=== PATIENT | female | born 1980 | race Caucasian/White ===

== ENCOUNTER 2017-02-07 12:49 | Emergency (ER) | payer MEDICAID ==
[2014-07-14 08:24] VITALS: BMI 51.0
[~2017-02-07 12:49] MED LIST: ADIPEX-P37.5 MG PO; ANTIVERT12.5 MG PO; CYCLOBENZAPRINE10 MG PO; DEMEROL50 MG PO; FLUTICASONE PRO16 GM NASAL; MECLIZINE HCL12.5 MG PO; METOPROLOL TART50 MG PO; ZYRTEC10 MG PO
== END 2017-02-07 14:30 | disposition home or self-care (01) ==
LOC: D.ER 12:49
DX: T63.461A Toxic effect of venom of wasps, accidental (unintentional), initial encounter (principal); Y92.029 Unspecified place in mobile home as the place of occurrence of the external cause; I10 Essential (primary) hypertension

== ENCOUNTER 2017-02-23 09:56 | Day surgery (SDC) | payer MEDICAID ==
[2017-02-23 11:15] LABS: BASOPHILS 0.3 % (0-2); EOSINOPHILS 2.6 % (0-7); HEMATOCRIT 39.4 % (36.0-48.0); HEMOGLOBIN 12.7 g/dL (12-16); IMMATURE GRANULOCYTES 0.4 % (0-5); LYMPHOCYTES 20.8 % (15-50); MCHC 32.2 g/dL (31.0-37.0); MEAN PLATELET VOLUME 10.1 fL (7.4-10.4); MONOCYTES 6.2 % (2-11); NEUTROPHILS 69.7 % (40-80); PLATELET COUNT 272 10x3/uL (130-400); RBC 4.38 10x6/uL (4.00-5.40); RDW 13.6 % (11.5-14.5); WBC 7.8 10x3/uL (4.8-10.8)
[2017-02-23] MEDS ORDERED: PAXIL40 MG PO (11:23)
[2017-02-23] MEDS ORDERED: BACLOFEN20 M1 PO (11:23)
[2017-02-23] MEDS ORDERED: WELLBUTRIN SR150 MG PO (11:24)
[2017-02-23] MEDS ORDERED: AMBIEN5 MG PO (11:24)
[2017-02-23 11:28] VITALS: BP 145/82; BMI 53.3
[2017-02-23 11:32] LABS: ANION GAP 11.4 mmol/L (8-16); CALCIUM 8.6 mg/dL (8.5-10.1); CARBON DIOXIDE 27.5 mmol/L (21.0-32.0); POTASSIUM - SERUM 3.9 mmol/L (3.5-5.1)
--- NOTE | 2017-02-24 09:09 | OP ---
PATIENT NAME: JAMA ADAM MEDICAL RECORD: [id number] :82 LOCATION:[facility] ADMISSION DATE: SURGEON: RODRIGUEZ HERNANDEZ DO DATE OF OPERATION: 02/23/2017 PROCEDURE: Colonoscopy. INDICATIONS FOR PROCEDURE: Right lower quadrant abdominal pain, nausea and vomiting. SCOPE: Olympus video pediatric colonoscope. MEDICATIONS: Propofol 350 mg IV per anesthesia. WITHDRAWAL TIME: 6 minutes. ESTIMATED BLOOD LOSS: None. COMPLICATIONS: None. FINDINGS: Informed consent was given. The patient was made comfortable with the above medication. DESCRIPTION OF PROCEDURE: After reaching an adequate level of sedation by slow IV push, the patient was placed on her left side. A digital rectal examination was performed and revealed some small external hemorrhoids, which were not bleeding. The endoscope was then advanced under direct visualization through the rectum to the terminal ileum. The scope was slowly withdrawn and mucosa was carefully examined. There was evidence of a few mild diverticulosis of the sigmoid colon. There was no evidence of diverticulitis. There were no polyps visualized on today's examination. There were no lesions or other abnormalities visualized involving the mucosa or lumen of the colon. The scope was brought back into the rectum and retroflexed where some small nonbleeding internal hemorrhoids were seen. The endoscope was then withdrawn from the patient. The patient tolerated the procedure well and there were no complications. IMPRESSIONS: 1. Mild diverticulosis of the sigmoid colon. 2. Small internal and external hemorrhoids, which were not bleeding. PLAN AND RECOMMENDATIONS: 1. Discharge home when recovery parameters are met. 2. High fiber diet. 3. Continue current medications. 4. Follow up with primary care physician as there is ongoing workup regarding the right lower quadrant abdominal pain. Based on today's examination, I do not have a cause from a GI standpoint for the right lower abdominal pain. 5. Recall colonoscopy at age 51 for colorectal cancer screening purposes. TRANSINT:[id number] Voice Confirmation ID: [id number] DOCUMENT ID: [id number] OPERATIVE REPORT [id number] JAMA ADAM RODRIGUEZ HERNANDEZ DO at 0909 CC: [id number] DICTATION DATE: 02/23/17 1352 SUBSTANCE ABUSE THERAPIST: 02/23/[address] [facility] 02/23/17 [place] [id number]
== END 2017-02-23 16:50 | disposition home or self-care (01) ==
LOC: D.OPS 09:56
PROVIDERS: Internal Medicine Gastroenterology
DX: R10.31 Right lower quadrant pain (principal); R11.2 Nausea with vomiting, unspecified; K64.4 Residual hemorrhoidal skin tags; K64.8 Other hemorrhoids; I10 Essential (primary) hypertension; E66.01 Morbid (severe) obesity due to excess calories; Z68.43 Body mass index [BMI] 50.0-59.9, adult; K57.30 Diverticulosis of large intestine without perforation or abscess without bleeding; Z01.812 Encounter for preprocedural laboratory examination